=== PATIENT | female | born 1975 | race Caucasian/White ===

== ENCOUNTER 2019-03-22 11:01 | Emergency (ER) | payer BC ==
--- OUTSIDE RECORDS SUMMARY | 2019-03-22 11:06 | XMS REPORT | Continuity of Care Document ---
:1975 External Reference #:[id number] Author Name Jez Blood M.D. Address [address] [place] [id number] Care Team Providers Name Role Phone Jez Blood MD - Family Care Team Information Pin Pusher [phone] Medicine Edgard Lanier MD - Gastroenterology Care Team Information Pin Pusher Problems Active Problems Provider Date Peptic reflux disease Jez Blood M.D. Onset: 09/07/2010 Social History Type Date Description Comments Sex Unknown Tobacco Use Start: Unknown Never Smoked Cigarettes ETOH Use Has 6 alcoholic drinks a month. Allergies, Adverse Reactions, Alerts Active Allergies Reaction Severity Comments Date Ibuprofen 08/01/2008 Shellfish-derived Products 08/05/2016 Macrolides And Ketolides 11/13/2016 Inactive Allergies NKDA 12/15/2001 Medications Active Medications SIG Qnty Indications Ordering Date Provider Acyclovir take 1 tablet 180tabs Jeremi, 04/17/2018 400mg Tablets by mouth Surjit Story twice a day Hydrochlorothiazide 1 by mouth 90tabs Jeremi, 12/29/2017 25mg Tablets every day Surjit Story Proair HFA 2 puffs every 1units Jeremi, 12/29/2017 108(90Base) mcg/Act 4 hours as Surjit Story Aerosol needed Vitamin B-12 1 by mouth 100tabs Jeremi, 11/13/2016 Natural every day Surjit Story 500mcg Tablets History Medications Cefdinir 2 by mouth 14caps Jez Blood, 09/30/2018 - 300mg Capsules every day x 7 M.DMoody 10/07/2018 Phenazopyridine HCL by mouth three 6tabs Jez Blood, 09/30/2018 - 200mg times a day x M.D. 10/02/2018 Tablets 2 days Immunizations CPT Code Status Date Vaccine Lot # [id number] Given 07/18/2011 MMR Virus Immunization [id number] 32775 Given 07/08/2011 Tdap (Adacel) Ages 7 And Above Only [id number] 94069 Given 04/13/2010 Afluria Or Fluvirin Flu Vac Intramuscular [id number] 00595 Given 04/08/2008 Afluria Or Fluvirin Flu Vac Intramuscular 23097 10669 Given 04/14/2007 Afluria Or Fluvirin Flu Vac Intramuscular [id number] 05103 Given 04/26/2006 Afluria Or Fluvirin Flu Vac Intramuscular 16712 Given 04/26/2006 Afluria Or Fluvirin Flu Vac Intramuscular 68555 51422 Given 04/12/2004 Afluria Or Fluvirin Flu Vac Intramuscular 46253 Given 04/12/2004 Afluria Or Fluvirin Flu Vac Intramuscular 28293 Given 04/30/2002 Afluria Or Fluvirin Flu Vac Intramuscular 29108 Given 04/30/2002 Afluria Or Fluvirin Flu Vac Intramuscular 96094 Refused 04/15/2017 Influenza Vaccine Quadrivalent Preser/Antibiotic Free Im Use Vital Signs Date Vital Result Comment 02/22/2019 3:24pm Body Temperature 97.8 F Weight 161.00 lb Heart Rate 60 /min BP Systolic 106 mmHg BP Diastolic 72 mmHg Height 66 inches 5'6" BMI (Body Mass Index) 26.0 kg/m2 09/30/2018 3:19pm Body Temperature 97.8 F Weight 161.00 lb Heart Rate 64 /min BP Systolic 112 mmHg BP Diastolic 66 mmHg Height 66 inches 5'6" BMI (Body Mass Index) 26.0 kg/m2 Urine Dipstick - Blood NEGATIVE Urine Dipstick - Protein NEGATIVE Urine Dipstick - Glucose NEGATIVE Urine Dipstick - Leukocytes 3+ ph 7, sp gravity 1.000 Results Test Date Facility Test Result H/L Range Note [facility] Microbiology res Abnormal 1 finding <SEE NOTE> 1 Microbiology results SOURCE Random urine COLONY COUNT >100,000 PRELIMINARY RESULT Gram Negative Jeff. ID & Sensitivity to Follow. 10/01/2018 3:50 PM FINAL RESULT Escherichia coli (Isolate 1) Sensitivity Analysis Isolate 1 --------- AMIKACIN <=16 S AMOXICILLIN/CLAVULANATE <=8/4 S AMPICILLIN >16 R AMPICILLIN/SULBACTAM 16/8 I CEFAZOLIN <=2 S CEFEPIME <=8 S CEFOTAXIME <=2 S CEFTRIAXONE <=1 S CEFUROXIME <=4 S CIPROFLOXACIN <=1 S ERTAPENEM <=0.5 S GENTAMYCIN <=2 S IMIPENEM <=1 S LEVOFLOXACIN <=2 S NITROFURANTOIN <=32 S PIPERACILLIN/TAZOBACTAM <=16 S TETRACYCLINE <=4 S TOBRAMYCIN <=4 S TRIMETHOPRIM/SULFAMETHOXAZ <=2/38 S S=Sensitive;I=Indeterminate;R=Resistant Procedures Description No Information Available Medical Devices Description No Information Available Encounters Type Date Location Provider Dx Diagnosis Office Visit 09/30/2018 [facility] Jez Blood N39.0 Urinary tract 3:15p M.D. infection, site not specified R30.0 Dysuria Z68.26 Body mass index (BMI) 26.0-26.9, adult Assessments Date Code Description Provider 02/22/2019 E16.1 Other hypoglycemia Jez Blood M.D. 02/22/2019 Z68.26 Body mass index (BMI) 26.0-26.9, adult Jez Blood M.D. 09/30/2018 N39.0 Urinary tract infection, site not specified Jez Blood M.D. 09/30/2018 R30.0 Dysuria Jez Blood M.D. 09/30/2018 Z68.26 Body mass index (BMI) 26.0-26.9, adult Jez Blood M.D. 09/30/2018 R10.2 Pelvic and perineal pain [facility] Plan of Treatment Future Appointment(s):03/12/2019 10:15 am - Jez Blood M.D. at [facility]02/22/2019 - Glowacki, Jez, M.D.E16.1 Other hypoglycemiaFollow up:Followup :.Z68.26 Body mass index (BMI) 26.0-26.9, adultAllComments:It is known that hypoglycemia is something that can occur following gastric bypass surgery. It can happen years after the procedure. We discussed treatment, which is really avoidance of low sugars. I explained to her that she should certainly eat more frequent smaller meals with both carbs and protein. Peanut butter crackers etc. She should avoid sweeter foods as well which may lead to more rapid hypoglycemic events. Care with alcohol. Not concerned about the post prandial sugar elevation either. At this time she will begin this plan. Monitor her sugars. Should therapy continue she may need to go back to Dr French. Not likely that there is another source of insulin either. She will check in with me on Friday. Functional Status Description No Information Available Mental Status Description No Information Available Referrals Description No Information Available
--- OUTSIDE RECORDS SUMMARY | 2019-03-22 11:06 | XMS REPORT | Continuity of Care Document ---
:1975 External Reference #:[id number] Author Name Jez Blood M.D. Address [address] [place] [id number] Care Team Providers Name Role Phone Jez Blood MD - Family Care Team Information Cdl Truck Driver [phone] Medicine Edgard Lanier MD - Gastroenterology Care Team Information Cdl Truck Driver Problems Active Problems Provider Date Peptic reflux [...] CPT Code Status Date Vaccine Lot # [id number] Given 07/18/2011 MMR Virus Immunization [id number] 66033 Given 07/08/2011 Tdap (Adacel) Ages 7 And Above Only [id number] 46990 Given 04/13/2010 Afluria Or Fluvirin Flu Vac Intramuscular [id number] 71660 Given 04/08/2008 Afluria Or Fluvirin Flu Vac Intramuscular 99566 93046 Given 04/14/2007 Afluria Or Fluvirin Flu Vac Intramuscular [id number] 18213 Given 04/26/2006 Afluria Or Fluvirin Flu Vac Intramuscular 47672 Given 04/26/2006 Afluria Or Fluvirin Flu Vac Intramuscular 78432 46422 Given 04/12/2004 Afluria Or Fluvirin Flu Vac Intramuscular 20258 Given 04/12/2004 Afluria Or Fluvirin Flu Vac Intramuscular 60161 Given 04/30/2002 Afluria Or Fluvirin Flu Vac Intramuscular 84004 Given 04/30/2002 Afluria Or Fluvirin Flu Vac Intramuscular 65399 Refused 04/15/2017 Influenza Vaccine Quadrivalent Preser/Antibiotic Free Im Use Vital Signs Date Vital Result Comment 03/12/2019 10:57am Body Temperature 97.9 F Weight 159.00 lb Heart Rate 64 /min BP Systolic 110 mmHg BP Diastolic 62 mmHg Height 66 inches 5'6" BMI (Body Mass Index) 25.7 kg/m2 02/22/2019 3:24pm Body Temperature 97.8 F Weight 161.00 lb Heart Rate 60 /min BP Systolic 106 mmHg BP Diastolic 72 mmHg Height 66 inches 5'6" BMI (Body Mass Index) 26.0 kg/m2 Results Test Date Facility Test Result H/L Range Note Laboratory test finding 03/04/2019 [facility] Cortisol 7.3 g/dL 1 Insulin 12.5 mIU/L (2.6-37.6) 2 Laboratory test 09/30/2018 [facility] Urine Culture Microbiology res Abnormal 3 finding <SEE NOTE> 1 CORTISOL REFERENCE RANGE: 7-9AM 5.3 - 22.5 MCG/DL 4-6PM 3.4 - 16.8 MCG/DL LATE AFTERNOON LEVELS FALL TO APPROX. 1/2 AM VALUE. RESULTS REVIEWED Unless otherwise specified, testing performed by [facility] [address] [place] [address] 2 ADULT REFERENCE RANGE Unless otherwise specified, testing performed by [facility] [address] [place] [address] 3 Microbiology results SOURCE Random urine COLONY COUNT [...] Location Provider Dx Diagnosis Office Visit 09/30/2018 [facility] Jez Blood, N39.0 Urinary tract 3:15p M.D. infection, site not specified R30.0 Dysuria Z68.26 Body mass index (BMI) 26.0-26.9, adult Assessments Date Code Description Provider 03/12/2019 E16.1 Other hypoglycemia Jez Blood M.D. 03/12/2019 F39 Unspecified mood [affective] disorder Jez Blood M.D. 03/12/2019 Z68.25 Body mass index (BMI) 25.0-25.9, adult Jez Blood M.D. 03/04/2019 E16.1 Other hypoglycemia Jez Blood M.D. 03/04/2019 E16.1 Other hypoglycemia [facility] 02/22/2019 E16.1 Other hypoglycemia Jez Blood M.D. 02/22/2019 Z68.26 Body mass index (BMI) 26.0-26.9, adult Jez Blood M.D. 09/30/2018 N39.0 Urinary tract infection, site not specified Jez Blood M.D. 09/30/2018 R30.0 Dysuria Jez Blood M.D. 09/30/2018 Z68.26 Body mass index (BMI) 26.0-26.9, adult Jez Blood M.D. 09/30/2018 R10.2 Pelvic and perineal pain [facility] Plan of Treatment 03/12/2019 - Jez Blood M.D.E16.1 Other hypoglycemiaFollow up:Followup: .F39 Unspecified mood [affective] [id number] Body mass index (BMI) 25.0-25.9 , adultAllComments:We reviewed the means to avoid the lows and she will work on this. She will discuss these issues with her bariatric surgeon as well. We reviewed her labs. For her mood I offered and advised counseling at this time and she is not interested. Functional Status Description No Information Available Mental Status Description No Information Available Referrals Description No Information Available
[2019-03-22 11:07] VITALS: BP 105/73
--- NOTE | 2019-03-22 11:43 | UC ---
Abdominal Pain Female HPI - HPI Summary HPI Summary: 43 yo female presents with abdominal pain. She tells me that on 03/18 she developed generalized abdominal cramping, nausea, and vomiting. Since that time her symptoms have worsened and the pain is more severe. She has been tolerating water and soups well, but states she will either vomit or it will "run right through her". She recalls eating sushi from tops on 03/17. She denies fever, chills, SOB, chest pain, dysuria. She has had multiple surgeries in her abdomen including RNY 5 years ago with a revision since that time. - History of Current Complaint Chief Complaint: UCAbdominalPain Stated Complaint: ABDOMINAL PAIN Time Seen by Provider: 03/22/19 11:43 Hx Obtained From: Patient Hx Last Menstrual Period: hyster Onset/Duration: Sudden Onset Severity Initially: Moderate Severity Currently: Severe Pain Intensity: 7 Pain Scale Used: 0-10 Numeric Allergies/Adverse Reactions: Allergies Allergy/AdvReac Type Severity Reaction Status Date / Time ibuprofen Allergy Nausea Verified 03/22/19 12:29 SEAFOOD Allergy FACIAL Uncoded 03/23/14 06:43 SWELLING PMH/Surg Hx/FS Hx/Imm Hx - Additional Past Medical History Additional PMH: RNY Respiratory History: Asthma - Surgical History Surgical History: Yes Surgery Procedure, Year, and Place: 11/2008- HYSTERECTOMY-GEN. TONSILLECTOMY -1993-GEN. [id number]. APPENDECTOMY-1995. 03/23/2014 BARIATRIC SURGERY - Family History Known Family History: Positive: None - Social History Lives: With Family Alcohol Use: Rare Substance Use Type: None Smoking Status (MU): Never Smoked Tobacco Household Exposure Type: Pipe - Immunization History Most Recent Influenza Vaccination: 2012 Most Recent Tetanus Shot: WITHIN THE PAST 5 YEARS. Most Recent Pneumonia Vaccination: HAS NOT HAD Review of Systems All Other Systems Reviewed And Are Negative: No Constitutional: Positive: Negative Skin: Positive: Negative Respiratory: Positive: Negative Cardiovascular: Positive: Negative Gastrointestinal: Positive: Abdominal Pain, Vomiting, Diarrhea, Nausea Genitourinary: Positive: Negative Neurovascular: Positive: Negative Neurological: Positive: Negative Psychological: Positive: Negative Physical Exam - Summary Physical Exam Summary: GENERAL: NAD. WDWN. No pain distress. SKIN: No rashes, sores, lesions, or open wounds. NECK: Supple. Nontender. No lymphadenopathy. CHEST: CTAB. No r/r/w. No accessory muscle use. Breathing comfortably and in no distress. CV: RRR. Without m/r/g. Pulses intact. Cap refill <2seconds ABDOMEN: Mild generalized TTP. Soft. No distention or guarding. No CVA tenderness. Bowel sounds present NEURO: Alert. PSYCH: Age appropriate behavior. Triage Information Reviewed: Yes Vital Signs: Initial Vital Signs Temp 97.8 F 03/22/19 11:05 Pulse 65 03/22/19 11:05 Resp 20 03/22/19 11:05 BP 105/73 03/22/19 11:05 Pulse Ox 100 03/22/19 11:05 Vital Signs Reviewed: Yes Abd Pain Female Course/Dx - Course Course Of Treatment: Given her worsening symptoms and extensive surgical history, I recommended pt be further evaluated in the ED. She was agreeable to this and declined ambulance transfer. - Differential Dx/Diagnosis Provider Diagnosis: Abdominal pain Discharge ED - Sign-Out/Discharge Documenting (check all that apply): Patient Departure All imaging exams completed and their final reports reviewed: No Studies - Discharge Plan Condition: Stable Disposition: HOME-RECOMMEND TO ED Referrals: Jeremi TRAN,Jez Garza [Primary Care Provider] - Additional Instructions: Please go to the ER for further evaluation of your abdominal pain - Billing Disposition and Condition Condition: STABLE Disposition: Home-Recommend to ED - Attestation Statements Provider Attestation: I was available for consult. This patient was seen by the ARNIE. The patient was not presented to, seen by, or examined by me. -Rajan
== END 2019-03-22 12:00 | disposition home health service (06) ==
LOC: UCEAST 11:01
DX: R10.84 Generalized abdominal pain (principal); J45.909 Unspecified asthma, uncomplicated
CPT/HCPCS: 99212; G0463

== ENCOUNTER 2019-03-22 12:17 | Emergency (ER) | payer BC ==
[2019-03-22] MEDS ORDERED: Morphine 4 MG/ML VIAL (1 ml) 4 MG/ML VIAL IV ONE (13:37)
[2019-03-22] MEDS ORDERED: Famotidine IV* 10 MG/ML 2 ML (20 mg) IV SLOW PU ONE (13:37)
[2019-03-22] MEDS ORDERED: NS 0.9% 1000 ML** 1,000 ML IV ONE (13:37)
[2019-03-22] MEDS ORDERED: Ondansetron INJ* 2 MG/ML VIAL IV ONE (13:37)
--- NOTE | 2019-03-22 13:49 | ED ---
Abdominal Pain/Female - HPI Summary HPI Summary: This patient is a 43-year-old female with a history of gastric bypass 5 years ago presented to the ED with mid epigastric pain since . She states she began to have nausea and vomiting on along with diarrhea. Since that time, she has been having intermittent abdominal pain which is been worsening of the course of 5 days. She endorses this pain as a constant ache, but intermittent stabbing and burning. She has not had history of abdominal pain since her gastric bypass surgery and has had no complications. Sxs are 10/ 10 in severity. Endorses vomiting (4 days ago) but denies vomiting since. Continues to have diarrhea. Denies any excessive burping, but states she feels "gassy". Continues to eat, however is eating less. Denies any fevers , but endorses sweats. Denies any darkened stools. Surgical history includes gastric bypass 5 years ago, appendectomy, cholecystectomy, hysterectomy - History of Current Complaint Chief Complaint: EDAbdPain Stated Complaint: ABD PAIN PER PT Time Seen by Provider: 03/22/19 13:31 Hx Obtained From: Patient Hx Last Menstrual Period: hyster ?: No Onset/Duration: Sudden Onset Timing: Constant Severity Initially: Severe Severity Currently: Severe Pain Intensity: 7 Pain Scale Used: 0-10 Numeric Location: Epigastric Radiates: No Character: Sharp, Dull, Burning Aggravating Factor(s): Nothing Alleviating Factor(s): Nothing Associated Signs and Symptoms: Positive: Negative - Risk Factors Ectopic Risk Factor: Negative Ovarian Torsion Risk Factor: Negative Allergies/Adverse Reactions: Allergies Allergy/AdvReac Type Severity Reaction Status Date / Time ibuprofen Allergy Nausea Verified 03/22/19 12:29 SEAFOOD Allergy FACIAL Uncoded 03/23/14 06:43 SWELLING Home Medications: Home Medications Calcium Carbonate [Calcium] 500 mg PO DAILY 03/22/19 [History Confirmed 03/22/19 ] Cyanocobalamin TAB* [Vitamin B12 TAB*] 500 mcg PO DAILY 03/22/19 [History Confirmed 03/22/19] Hydrochlorothiazide TAB* [Hydrodiuril TAB*] 25 mg PO DAILY 03/22/19 [History Confirmed 03/22/19] LoraTADine TAB(NF) [Claritin 10 MG TAB(NF)] 10 mg PO DAILY PRN 03/22/19 [ History Confirmed 03/22/19] PMH/Surg Hx/FS Hx/Imm Hx Previously Healthy: Yes Endocrine/Hematology History: Denies: Hx Diabetes, Hx Thyroid Disease Cardiovascular History: Denies: Hx Hypertension Respiratory History: Reports: Hx Asthma, Hx Chronic Bronchitis, Hx Sleep Apnea - NO MACHINE Denies: Hx Chronic Obstructive Pulmonary Disease (COPD) GI History: Reports: Hx Gastroesophageal Reflux Disease - ON MEDICATION FOR Denies: Hx Ulcer Sensory History: Denies: Hx Contacts or Glasses, Hx Hearing Aid Opthamlomology History: Denies: Hx Contacts or Glasses Psychiatric History: Denies: Hx Anxiety, Hx Depression - Surgical History Surgery Procedure, Year, and Place: 11/2008- HYSTERECTOMY-GEN. TONSILLECTOMY -1993-. [id number]. APPENDECTOMY-1995. 03/23/2014 BARIATRIC SURGERY Hx Anesthesia Reactions: No - Immunization History Hx Pertussis Vaccination: No Immunizations Up to Date: Yes Infectious Disease History: No Infectious Disease History: Denies: Hx Hepatitis, Hx Human Immunodeficiency Virus (HIV), Traveled Outside the [place] in Last 30 Days - Family History Known Family History: Positive: None - Social History Occupation: Employed Full-time Lives: With Family Alcohol Use: Rare Hx Substance Use: No Substance Use Type: Reports: None Hx Tobacco Use: No Smoking Status (MU): Never Smoked Tobacco Review of Systems Constitutional: Negative Negative: Fever, Chills, Fatigue, Skin Diaphoresis Negative: Palpitations, Chest Pain Negative: Shortness Of Breath, Cough Positive: Abdominal Pain - epigastric, Vomiting, Diarrhea, Nausea Genitourinary: Negative Positive: no symptoms reported, see HPI Negative: Arthralgia, Myalgia Skin: Negative Neurological: Negative All Other Systems Reviewed And Are Negative: Yes Physical Exam Triage Information Reviewed: Yes Vital Signs On Initial Exam: Initial Vitals Temp Pulse Resp BP Pulse Ox 97.3 F 63 14 116/74 100 03/22/19 12:19 03/22/19 12:19 03/22/19 12:03/22/19 12:03/22/19 12:19 Vital Signs Reviewed: Yes Appearance: Positive: Well-Appearing, Well-Nourished Skin: Positive: Skin Color Reflects Adequate Perfusion Head/Face: Positive: Normal Head/Face Inspection Eyes: Positive: EOMI, PRIYA, Conjunctiva Clear Neck: Positive: Supple, Nontender, No Lymphadenopathy Respiratory/Lung Sounds: Positive: Clear to Auscultation, Breath Sounds Present Cardiovascular: Positive: RRR, Pulses are Symmetrical in both Upper and Lower Extremities Abdomen Description: Positive: Other: - Tenderness to the epigastric region without tenderness to other quadrants no CVA tenderness bilaterally, no distention or guarding Musculoskeletal: Positive: Normal, Strength/ROM Intact Neurological: Positive: Sensory/Motor Intact, Alert, Oriented to Person Place, Time, Speech Normal Psychiatric: Positive: Normal, Affect/Mood Appropriate AVPU Assessment: Alert Diagnostics - Vital Signs Vital Signs Temp Pulse Resp BP Pulse Ox 03/22/19 13:45 18 03/22/19 12:19 97.3 F 63 14 116/74 100 - Laboratory Result Diagrams: 03/22/19 14:14 03/22/19 14:14 Lab Statement: Any lab studies that have been ordered have been reviewed, and results considered in the medical decision making process. Abdominal Pain Fem Course/Dx - Course Course Of Treatment: During this course of treatment, the patient is evaluated for epigastric pain without radiation. She denies any chest pain or shortness of breath. She is status post Estrellita-en-Y [address] Palumbo. Denies any complications since the surgery and has a f/u with him next week. Denies nausea or vomiting x 5 days. She states she had nausea and vomiting x 1 approximately 4 days ago which subsided. Denies any UA sxs. Endorses diarrhea but denies malodorous BM's. Last BM this morning and was loose and brown in color. Denies fevers but has been having some sweats intermittently. Labs obtained and all WNL. CT abd/pelvis positive for Estrellita-en-Y without acute abnormalities. Patient was given famotidine, morphine and Zofran while in the ED. She states this improved her symptoms, however still feels "gassy." She does continue to endorse pain, however this has reduced from an 8/10 to a 2/10. Discussed options with the patient in terms of admission and surgical consult. Patient states she has a follow-up with Dr. Palumbo next week. Pt refusing admission and has her sxs have improved, will send home with rx for protonix, tramadol and zofran. Dr. Childress to see pt while in the ED. Recommends protonix. - Diagnoses Differential Diagnosis: Positive: Bowel Obstruction, Pancreatitis, Peptic Ulcer Disease, Other - ulcer, GERD, abdominal pain Provider Diagnoses: Abdominal pain Discharge ED - Sign-Out/Discharge Documenting (check all that apply): Patient Departure Patient Received Moderate/Deep Sedation with Procedure: No - Discharge Plan Condition: Stable Disposition: HOME Prescriptions: Famotidine [Pepcid] 40 mg PO DAILY #20 tablet Ondansetron ODT TAB* [Zofran 4 MG Odt TAB*] 4 mg PO Q6H PRN #12 tab.odt MDD 4 PRN Reason: Nausea Pantoprazole TAB * [Protonix TAB*] 40 mg PO DAILY #30 tab traMADol TAB* [Ultram*] 50 mg PO Q8H PRN #12 tab MDD 3 PRN Reason: Pain Patient Education Materials: Epigastric Pain (ED) Referrals: Sylvain Palumbo MD [Medical Doctor] - Jeremi TRAN,Jez Garza [Primary Care Provider] - Additional Instructions: You were seen in the ED for epigastric pain Please take Protonix 40 mg 1 tab daily until follow-up with Dr. Palumbo Eat small amounts at a time and eat bland diet You may take tramadol and Zofran as needed for any discomfort or nausea - Billing Disposition and Condition Condition: STABLE Disposition: Home
[2019-03-22 14:24] LABS: ABS Eosinophils 0.2 10^3/ul (0-0.6); ABS Lymphocytes 1.5 10^3/ul (1.0-4.8); ABS Monocytes 0.9 10^3/ul (0-0.8); ABS Neutrophils 2.4 10^3/ul (1.5-7.7); Eosinophil % 3.5 %; Hematocrit 33 % (35-47); Hemoglobin 11.2 g/dL (12.0-16.0); Lymphocyte % 29.8 %; Mean Corpuscular HGB Conc 34 g/dL (31-36); Mean Corpuscular Hemoglobin 30 pg (27-31); Mean Corpuscular Volume 89 fL (80-97); Mean Platelet Volume 9.5 fL (7.4-10.4); Platelet Count 226 10^3/uL (150-450); Red Blood Count 3.74 10^6 /uL (3.70-4.87); Red Cell Distribution Width 13 % (10-15); White Blood Count 4.9 10^3/uL (3.5-10.8)
[2019-03-22 14:49] LABS: HCG Pregnancy < 0.60 mIU/mL
[2019-03-22 14:55] LABS: Urine Appearance Clear; Urine Bilirubin Negative (Negative); Urine Blood Negative (Negative); Urine Color Yellow; Urine Glucose Negative (Negative); Urine Ketones Negative (Negative); Urine Nitrite Negative (Negative); Urine Protein Negative (Negative); Urine Specific Gravity 1.011 (1.010-1.030); Urine Urobilinogen Negative (Negative)
[2019-03-22 14:58] LABS: ALT 18 U/L (7-52); AST 20 U/L (13-39); Albumin 3.8 g/dL (3.2-5.2); Albumin/Globulin Ratio 1.7 (1-3); Alkaline Phosphatase 38 U/L (34-104); Anion Gap 6 mmol/L (2-11); Blood Urea Nitrogen 12 mg/dL (6-24); C Reactive Protein 11.92 mg/L (<8.01); CO2 Carbon Dioxide 29 mmol/L (22-32); Calcium 8.1 mg/dL (8.6-10.3); Chloride 103 mmol/L (101-111); EGFR Non-African American 104.1 (>60); Globulin 2.2 g/dL (2-4); Glucose 83 mg/dL (70-100); Sodium 138 mmol/L (135-145)
[2019-03-22] MEDS ORDERED: Iohexol 300* (CONTRAST) 10 ML SDV IV ONE (15:15)
[2019-03-22] MEDS ORDERED: SIMETHICONE SUSP* ORALSYR 66.66 MG/ML PO ONE (16:30)
[2019-03-22 17:26] VITALS: BP 111/61
--- NOTE | 2019-03-22 18:57 | CONS ---
CC: [facility]; [facility], Attn: Dr. Palumbo.* CONSULTATION REPORT: DATE OF CONSULT: 03/22/19 REFERRING PROVIDER: EB Sun, in the emergency room. REASON FOR CONSULT: Epigastric pain. HISTORY OF PRESENT ILLNESS: Pamela Shi is a 43-year-old woman who underwent laparoscopic gastric bypass with Dr. Palumbo in 2013. She had done well until several years ago when apparently she had some difficulty with esophageal motility and a possible anastomotic ulceration, but has done well since that time. She has lost appropriate amount of weight and continues to do well. She states on late last and into Friday developed some epigastric discomfort, which has been rather persistent. It does not radiate through to her back. She has not had any nausea or vomiting and she has not had dysphagia. She reports having seen a university counselor in [place] several years ago for esophageal dilation and possible anastomotic dilation. I do not have these records and she is not certain of the exact procedure, but she was told that she also most likely had a preexisting esophageal motility. She eats mainly moist foods and stays away from dry foods such as bread and crackers. She has had no mid or lower abdominal discomfort. She is passing flatus. Her bowels have been working and she has not had any abdominal distention. When seen in the emergency room, she was afebrile with heart rate in the 60s. Laboratory workup included a normal white blood cell count. She had a C- reactive protein of 11.9. Otherwise, electrolytes, BUN and creatinine were all within normal limits and test was unremarkable. She underwent a CT scan of the abdomen and pelvis with both oral and IV contrast. I did review these images. This shows rapid flow of contrast through the small intestine without evidence of obstruction, internal hernia, mesenteric or bowel volvulus. There was some expected dilation at the jejunojejunostomy and no evidence of free fluid, free air or other acute abnormality. She has undergone both a cholecystectomy and an appendectomy in the past. PAST MEDICAL HISTORY: 1. Morbid obesity as per above. 2. Gastroesophageal reflux disease. 3. Asthma. 4. Sleep apnea. PAST SURGICAL HISTORY: 1. Cholecystectomy. 2. Appendectomy. 3. Hysterectomy. 4. Laparoscopic Estrellita-en-Y gastrojejunostomy. ALLERGIES: She is allergic to IBUPROFEN and SEAFOOD. SOCIAL HISTORY: She works at [employer]. PHYSICAL EXAM: She is afebrile, heart rate is in the 60s. She is sitting upright and is awake, alert, and conversive. Her lungs were clear to auscultation with normal respiratory effort. Heart was regular rate and rhythm without murmurs, rubs, or gallops. Her abdomen is soft, nondistended. She has a well-healed laparoscopic incision without hernia. She has normoactive bowel sounds throughout. She has localized tenderness in the epigastrium just below the breasts in an area of approximately 3 cm x 4 cm. There is no rigidity or hernias noted. IMPRESSION AND PLAN: Three to four days of persistent epigastric discomfort without dysphagia, nausea, or vomiting and a normal laboratory workup. She has no fevers or tachycardia. CT scan as per above. I discussed her findings on her history and physical exam as well as the CT scan with Dr. Palumbo. I do not believe that there is indication for any surgical intervention at this point and suspect that her symptoms may be due to marginal ulcer and/or esophagitis. She has not been on proton pump inhibitor or H2 abdiel and we will start her on Protonix to be discharged home. She would like to go home and has an appropriate followup with Dr. Palumbo next week. She most likely will need GI followup with possible upper endoscopy. I instructed her to return to the emergency room if her pain worsens, changes in character, if she develops generalized abdominal pain, nausea, vomiting, fevers , or if she has other questions or concerns. [id number]/[facility] #: [id number] [facility]
== END 2019-03-22 17:10 | disposition home or self-care (01) ==
LOC: ED 12:17
DX: R10.9 Unspecified abdominal pain (principal); J45.909 Unspecified asthma, uncomplicated; K21.9 Gastro-esophageal reflux disease without esophagitis; Z98.84 Bariatric surgery status; Z90.49 Acquired absence of other specified parts of digestive tract; Z90.710 Acquired absence of both cervix and uterus; Z79.899 Other long term (current) drug therapy; Z88.6 Allergy status to analgesic agent
CPT/HCPCS: 36415; 74177; 80053; 81003; 83605; 83690; 84702; 85025; 86140; 96361; 96374; 96375; 99282; A9270-GY; J2270; J2405; Q9967